=== PATIENT | female | born 1975 | race Caucasian/White ===

== ENCOUNTER 2019-09-19 07:02 | Day surgery (SDC) | payer BC ==
[~2019-09-19 07:02] MED LIST: Lactated Ringers 1,000 ML IV SCH; Lidocaine 1%/Sod Bicarbonate in NS 8.4% 1 ML Syringe IDERM PRN; Sodium Chloride 0.9% 10 ML Syringe FLUSH PRN
[2019-09-19] MEDS ORDERED: Lidocaine 1% 4 ML ONE (07:08)
[2019-09-19] MEDS ORDERED: Midazolam 1 MG/ML 2 ML SDV ONE (07:08)
[2019-09-19] MEDS ORDERED: Propofol 200 MG/20 ML SDV ONE (07:08)
[2019-09-19] MEDS ORDERED: Ondansetron 4 MG/2 ML SDV ONE (07:08)
[2019-09-19] MEDS ORDERED: Rocuronium 50 MG/5 ML Vial ONE (07:08)
[2019-09-19] MEDS ORDERED: Sodium Chloride 0.9% 50 ML SDV ONE (07:08)
[2019-09-19] MEDS ORDERED: Lidocaine 1% with EPINEPHrine 1:100,000 20 ML MDV ONE (07:08)
[2019-09-19] MEDS ORDERED: fentaNYL 250 MCG/5 ML SDV ONE (07:09)
[2019-09-19] MEDS ORDERED: ceFAZolin 1 GM Vial ONE (07:14)
[2019-09-19] MEDS ORDERED: Bupivacaine 0.5% 30 ML SDV ONE (07:19)
--- NOTE | 2019-09-19 07:31 | PCM.PREANE ---
Preanesthetic Assessment - Procedure Proposed Procedure: lavh with bs - Anesthesia/Transfusion/Family Hx Anesthesia History: Prior Anesthesia Without Reaction Family History of Anesthesia Reaction: No Transfusion History: No Prior Transfusion(s) - Review of Systems General: No Symptoms Pulmonary: No Symptoms Cardiovascular: No Symptoms Gastrointestinal: No Symptoms Neurological: No Symptoms Other: Reports: None - Physical Assessment NPO Status Date: 09/18/19 NPO Status Time: 21:00 Vital Signs: 98/70 58 100% 07153.0 Height: 5 ft Weight: 52 kg ASA Class: 1 Mental Status: Alert & Oriented x3 Airway Class: Mallampati = 1 Dentition: Reports: Normal Dentition Thyro-Mental Finger Breadths: 3 Mouth Opening Finger Breadths: 3 ROM/Head Extension: Full Lungs: Clear to Auscultation, Normal Respiratory Effort Cardiovascular: Regular Rate, Regular Rhythm - Lab Values: Laboratory Last Values WBC 7.63 K/mm3 (3.98-10.04) 09/17/19 16:46 RBC 4.81 M/mm3 (3.98-5.22) 09/17/19 16:46 Hgb 14.1 gm/dl (11.2-15.7) 09/17/19 16:46 Hct 41.2 % (34.1-44.9) 09/17/19 16:46 MCV 85.7 fl (79.4-94.8) D 09/17/19 16:46 MCH 29.3 pg (25.6-32.2) 09/17/19 16:46 MCHC 34.2 g/dl (32.2-35.5) 09/17/19 16:46 RDW Std Deviation 41.4 fL (36.4-46.3) 09/17/19 16:46 Plt Count 271 K/mm3 (182-369) 09/17/19 16:46 MPV 9.4 fl (9.4-12.3) 09/17/19 16:46 Neut % (Auto) 67.2 % (34.0-71.1) 09/17/19 16:46 Lymph % (Auto) 22.9 % (19.3-51.7) 09/17/19 16:46 [place] % (Auto) 8.0 % (4.7-12.5) 09/17/19 16:46 Eos % (Auto) 1.2 (0.7-5.8) 09/17/19 16:46 Baso % (Auto) 0.4 % (0.1-1.2) 09/17/19 16:46 Neut # (Auto) 5.13 K/mm3 (1.56-6.13) 09/17/19 16:46 Lymph # (Auto) 1.75 K/mm3 (1.18-3.74) 09/17/19 16:46 [place] # (Auto) 0.61 K/mm3 (0.24-0.36) H 09/17/19 16:46 Eos # (Auto) 0.09 K/mm3 (0.04-0.36) 09/17/19 16:46 Baso # (Auto) 0.03 K/mm3 (0.01-0.08) 09/17/19 16:46 Creatinine 1.1 mg/dL (0.55-1.02) H 09/17/19 16:46 Est Cr Clr Drug Dosing TNP 09/17/19 16:46 Estimated GFR (MDRD) 53 mL/min (>60) 09/17/19 16:46 Urine Color Yellow (Yellow) 09/17/19 16:46 Urine Appearance Clear (Clear) 09/17/19 16:46 Urine pH 5.5 (5.0-8.0) 09/17/19 16:46 Ur Specific [place] 1.020 (1.005-1.030) 09/17/19 16:46 Urine Protein Negative (Negative) 09/17/19 16:46 Urine Glucose (UA) Negative (Negative) 09/17/19 16:46 Urine Ketones 1+ (Negative) H 09/17/19 16:46 Urine Occult Blood Negative (Negative) 09/17/19 16:46 Urine Nitrite Negative (Negative) 09/17/19 16:46 Urine Bilirubin Negative (Negative) 09/17/19 16:46 Urine Urobilinogen 0.2 (0.2-1.0) 09/17/19 16:46 Ur Leukocyte Esterase Negative (Negative) 09/17/19 16:46 Urine RBC 0-5 /hpf (0-5) 09/17/19 16:46 Urine WBC 0-5 /hpf (0-5) 09/17/19 16:46 Ur Squamous Epith Cells 0-5 /hpf (0-5) 09/17/19 16:46 Urine Bacteria Occasional /hpf (FEW) 09/17/19 16:46 Urine Mucus Few /hpf (FEW) 09/17/19 16:46 Urine HCG, Qual Negative (NEGATIVE) 09/17/19 16:46 Blood Type B POSITIVE 09/17/19 16:46 Gel Antibody Screen Negative 09/17/19 16:46 - Allergies Allergies/Adverse Reactions: Allergies Allergy/AdvReac Type Severity Reaction Status Date / Time morphine Allergy Itching Verified 09/18/19 11:40 oxycodone [From OxyContin] Allergy Itching Verified 09/18/19 11:40 - Blood Blood Available: No - Acknowledgements Anesthesia Type Planned: General Anesthesia Pt an Appropriate Candidate for the Planned Anesthesia: Yes Alternatives and Risks of Anesthesia Discussed w Pt/Guardian: Yes Pt/Guardian Understands and Agrees with Anesthesia Plan: Yes PreAnesthesia Questionnaire HEENT History: Reports: Other (See Below) Other HEENT History: bilateral ear pinning, oral surgery Cardiovascular History: Reports: None Respiratory History: Reports: None Gastrointestinal History: Reports: None Genitourinary History: Reports: Other (See Below) Other Genitourinary History: menorrhagia, , breast augmentation 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 (See Below) Other OB/BYN History: right breast mass, dense breast tissue, twins delivered via c section, dysmenorrhea Musculoskeletal History: Reports: None Neurological History: Reports: None Psychiatric History: Reports: None Endocrine/Metabolic History: Reports: Other (See Below) Other Endocrine/Metabolic History: fatigue, female hirsutism Hematologic History: Reports: None Immunologic History: Reports: None Oncologic (Cancer) History: Reports: None Dermatologic History: Reports: Other (See Below) Other Dermatologic History: acne - Past Surgical History Head Surgeries/Procedures: Reports: None HEENT Surgical History: Reports: LASIK, Oral Surgery, Other (See Below) (ears pinned back) Cardiovascular Surgical History: Reports: None Respiratory Surgical History: Reports: None GI Surgical History: Reports: None Female Surgical History: Reports: None, Section, Other (See Below) ( breasts lifted) Male Surgical History: Reports: None Endocrine Surgical History: Reports: None Neurological Surgical History: Reports: None Musculoskeletal Surgical History: Reports: None Dermatological Surgical History: Reports: None - SUBSTANCE USE Smoking Status *Q: Never Smoker Tobacco Use Within Last Twelve Months: No Second Hand Smoke Exposure: No Days Per Week of Alcohol Use: 1 Recreational Drug Use History: No - HOME MEDS Home Medications: Home Meds Doxycycline Monohydrate 100 mg PO DAILY PRN 09/18/19 [History] Spironolactone 50 mg PO DAILY 09/18/19 [History] - CURRENT (IN HOUSE) MEDS Current Meds: Current Medications Lactated Ringer's (Ringers, Lactated) 1,000 mls @ 125 mls/hr IV ASDIRECTED QING Lidocaine/Sodium Bicarbonate (Buffered Lidocaine 1% In Ns 8.4%) 0.25 ml IDERM ONETIME PRN PRN Reason: Prior to IV Start Sodium Chloride (Saline Flush) 10 ml FLUSH ASDIRECTED PRN PRN Reason: Keep Vein Open Discontinued Medications Bupivacaine HCl (Marcaine 0.5%) Confirm Administered Dose 30 ml .ROUTE .STK-MED ONE Stop: 09/19/19 07:20 Cefazolin Sodium (Ancef) Confirm Administered Dose 2 gm .ROUTE .STK-MED ONE Stop: 09/19/19 07:15 Fentanyl (Sublimaze) Confirm Administered Dose 250 mcg .ROUTE .STK-MED ONE Stop: 09/19/19 07:10 Lidocaine HCl (Xylocaine-Mpf 1%) Confirm Administered Dose 4 mls @ as directed .ROUTE .STK-MED ONE Stop: 09/19/19 07:09 Lidocaine/Epinephrine (Xylocaine 1% With Epinephrine 1:100,000) Confirm Administered Dose 20 ml .ROUTE .STK-MED ONE Stop: 09/19/19 07:09 Midazolam HCl (Versed 1 Mg/Ml) Confirm Administered Dose 2 mg .ROUTE .STK-MED ONE Stop: 09/19/19 07:09 Ondansetron HCl (Zofran) Confirm Administered Dose 4 mg .ROUTE .STK-MED ONE Stop: 09/19/19 07:09 Propofol (Diprivan 20 Ml) Confirm Administered Dose 200 mg .ROUTE .STK-MED ONE Stop: 09/19/19 07:09 Rocuronium [place] (Zemuron) Confirm Administered Dose 50 mg .ROUTE .STK-MED ONE Stop: 09/19/19 07:09 Sodium Chloride (Normal Saline) Confirm Administered Dose 50 ml .ROUTE .STK-MED ONE Stop: 09/19/19 07:09
[2019-09-19] MEDS ORDERED: Ketorolac 30 MG/ML SDV ONE (07:58)
[2019-09-19] MEDS ORDERED: Dexamethasone 4 MG/ML 5 ML MDV ONE (08:15)
[2019-09-19] MEDS ORDERED: Neostigmine Methylsulfate 1 MG/ML 5 ML Syringe ONE (08:26)
[2019-09-19] MEDS ORDERED: Lactated Ringers 1,000 ML ONE (08:29)
--- NOTE | 2019-09-19 09:18 | PCM.POSTAN ---
POST ANESTHESIA ASSESSMENT - MENTAL STATUS Mental Status: Alert, Oriented, Somnolent - VITAL SIGNS Vital Signs: Last Vital Signs Temp 98.0 F 09/19/19 07:05 Pulse 58 L 09/19/19 07:05 Resp 16 09/19/19 07:05 BP 98/70 09/19/19 07:05 Pulse Ox 100 09/19/19 07:05 114/59 100% 59 21 97.5 - RESPIRATORY Respiratory Status: Respiratory Rate WNL, Airway Patent, O2 Saturation Stable, Supplemental Oxygen - CARDIOVASCULAR CV Status: Pulse Rate WNL, Blood Pressure Stable - GASTROINTESTINAL GI Status: No Symptoms - PAIN Pain Score: 0 - POST OP HYDRATION Hydration Status: Adequate & Stable
[2019-09-19] MEDS ORDERED: Ondansetron 4 MG/2 ML SDV IVPUSH PRN ×2 (10:02→11:07)
[2019-09-19] MEDS: fentaNYL 100 MCG/2 ML SDV IVPUSH PRN ×2 (10:07→11:16)
--- NOTE | 2019-09-19 11:06 | PCM48HPAN ---
Post Anesthesia Note - EVALUATION WITHIN 48HRS OF ANESTHETIC Vital Signs in Normal Range: Yes Patient Participated in Evaluation: Yes Respiratory Function Stable: Yes Airway Patent: Yes Cardiovascular Function Stable: Yes Hydration Status Stable: Yes Pain Control Satisfactory: Yes Nausea and Vomiting Control Satisfactory: Yes Mental Status Recovered: Yes (doing well. no complaints- drinking coffee) Vital Signs: Last Vital Signs Temp 97.7 F 09/19/19 10:20 Pulse 52 L 09/19/19 11:00 Resp 16 09/19/19 11:00 BP 98/55 L 09/19/19 11:00 Pulse Ox 100 09/19/19 11:00
[2019-09-19] MEDS ORDERED: traMADol 50 MG Tab PO PRN ×2 (11:08→11:29)
[2019-09-19] MEDS ORDERED: Ketorolac 30 MG/ML SDV IVPUSH SCH (11:15)
--- NOTE | 2019-09-19 11:15 | PCM.OPNOTE ---
- General Post-Op/Procedure Note Date of Surgery/Procedure: 09/19/19 Operative Procedure(s): Total vaginal hysterectomy with bilateral salpingectomy Findings: Uterus tubes and ovaries within normal limits grossly. Pre Op Diagnosis: 1. Dysmenorrhea. 2. Menorrhagia Post-Op Diagnosis: Same Anesthesia Technique: General ET Tube Other Anesthesia Type: Lidocaine quarter percent with mLlocal Primary Surgeon: Mitchel Aguirre Secondary Surgeon: Josue Duarte Anesthesia Provider: Malcom Casanova Valve Lapper: Minesh Guan Reason Valve Lapper Was Necessary: Retraction, assistance, patient safety, quality of care Pathology: Uterus, bilateral fallopian tubes Fluid Replacement, Intraop: 1,000 EBL in mLs: 20 Complications: None Condition: Good Free Text/Narrative:: Intake & Output 09/18/19 09/19/19 09/19/19 22:59 06:59 14:59 Intake Total 940 Balance 940 Duration: 33 minutes Procedure: The patient was placed in supine position on the operating table. General endotracheal anesthesia was accomplished. After positioning, and adequate prep and drape, the procedure was then performed. Sterile speculum was placed in the vagina and cervix was visualized. Cervix was injected with lidocaine quarter percent with epinephrine-20 mL used. A full circumference incision was made in the cervical epithelium. The bladder was pushed well back off cervix. Posterior cul-de-sac was then entered sharply without problems. Left uterosacral was crossclamped with a Enseal vessel closure system. The left uterosacral and then the right uterosacral ligament pedicles were developed using the Enseal system. The anterior cul-de-sac was then entered without problems and the uterine vasculature, cardinal ligament and broad ligament then developed using Enseal vessel closure system. The uterus was inverted at this time and upper broad ligament fallopian tube pedicles were crossclamped with Jamey clamps. Specimen was totally removed. Both these pedicles were then secured with a Enseal vessel closure system. Left and right fallopian tube was normal in appearance.. Using Enseal vessel closure system each of the tubes was then removed and sent with the specimen. The patient was found to be hemostatically intact at this time. Vaginal cuff was sutured for hemostatic reasons with a running locked suture of 0 Monocryl from the 2 o'clock position to the 10 o'clock position posteriorly. Vaginal cuff was then closed from right to left side with a running locked suture of 0 Monocryl. Patient was returned to supine position and awakened from general endotracheal anesthesia. She tolerated the procedure and left the operating room in satisfactory condition.
== END 2019-09-19 13:35 | disposition home or self-care (01) ==
LOC: JD.SDS 07:02
PROVIDERS: ATTEND Obstetrics & Gynecology
DX: N80.0 Endometriosis of uterus (principal); N87.9 Dysplasia of cervix uteri, unspecified; N72 Inflammatory disease of cervix uteri; L68.0 Hirsutism; Z88.5 Allergy status to narcotic agent; Z79.899 Other long term (current) drug therapy
CPT/HCPCS: 36415; 58262; 81001; 81025; 82565; 85025; 86850; 86900; 86901; A9270; J0690; J1100; J1885; J2001; J2250; J2405; J2704; J2710; J3010; J3490; J7120; 00944

== ENCOUNTER 2020-09-14 07:51 | Day surgery (SDC) | payer BC ==
[~2020-09-14 07:51] MED LIST changes: +Dexamethasone 4 MG/ML 5 ML MDV ONE; +Ketorolac 15 MG/ML SDV ONE; +Lactated Ringers 1,000 ML ONE; +Lidocaine 1% 4 ML ONE; +Midazolam 1 MG/ML 2 ML SDV ONE; +Ondansetron 4 MG/2 ML SDV ONE; +Propofol 200 MG/20 ML SDV ONE; +Rocuronium 50 MG/5 ML Vial ONE; +ceFAZolin 1 GM Vial ONE; +fentaNYL 250 MCG/5 ML SDV ONE
[2020-09-14] MEDS ORDERED: Bupivacaine 0.5% 30 ML SDV ONE (08:06)
[2020-09-14] MEDS ORDERED: fentaNYL 100 MCG/2 ML SDV IVPUSH PRN ×2 (09:38→10:24)
[2020-09-14] MEDS ORDERED: HYDROmorphone 0.5 MG/0.5 ML Syringe IVPUSH PRN (09:38)
[2020-09-14] MEDS ORDERED: Ondansetron 4 MG/2 ML SDV IVPUSH PRN ×3 (09:38→10:54)
--- NOTE | 2020-09-14 09:42 | PCM.PREANE ---
Preanesthetic Assessment - Anesthesia/Transfusion/Family Hx Anesthesia History: Prior Anesthesia Without Reaction Family History of Anesthesia Reaction: No Transfusion History: No Prior Transfusion(s) Intubation History: Unknown - Review of Systems General: No Symptoms Pulmonary: No Symptoms Cardiovascular: No Symptoms Gastrointestinal: No Symptoms Neurological: No Symptoms Other: Reports: None - Physical Assessment NPO Status Date: 09/13/20 NPO Status Time: 20:00 Vital Signs: Last Vital Signs Temp 36.3 C 09/14/20 07:50 Pulse 50 L 09/14/20 07:50 Resp 16 09/14/20 07:50 BP 106/60 09/14/20 07:50 Pulse Ox 100 09/14/20 07:50 Height: 1.52 m Weight: 52.163 kg ASA Class: 1 Mental Status: Alert & Oriented x3 Airway Class: Mallampati = 2 Dentition: Reports: Normal Dentition, Car[place] Thyro-Mental Finger Breadths: 3 Mouth Opening Finger Breadths: 3 ROM/Head Extension: Full Lungs: Clear to Auscultation, Normal Respiratory Effort Cardiovascular: Regular Rate, Regular Rhythm, No Murmurs - Lab Values: Laboratory Last Values WBC 7.85 K/mm3 (3.98-10.04) 09/10/20 12:58 RBC 4.70 M/mm3 (3.98-5.22) 09/10/20 12:58 Hgb 14.3 gm/dl (11.2-15.7) 09/10/20 12:58 Hct 42.2 % (34.1-44.9) 09/10/20 12:58 MCV 89.8 fl (79.4-94.8) 09/10/20 12:58 MCH 30.4 pg (25.6-32.2) 09/10/20 12:58 MCHC 33.9 g/dl (32.2-35.5) 09/10/20 12:58 RDW Std Deviation 40.1 fL (36.4-46.3) 09/10/20 12:58 Plt Count 251 K/mm3 (182-369) 09/10/20 12:58 MPV 9.2 fl (9.4-12.3) L 09/10/20 12:58 Neut % (Auto) 76.8 % (34.0-71.1) H 09/10/20 12:58 Lymph % (Auto) 14.6 % (19.3-51.7) L 09/10/20 12:58 [place] % (Auto) 6.2 % (4.7-12.5) 09/10/20 12:58 Eos % (Auto) 1.8 (0.7-5.8) 09/10/20 12:58 Baso % (Auto) 0.5 % (0.1-1.2) 09/10/20 12:58 Neut # (Auto) 6.02 K/mm3 (1.56-6.13) 09/10/20 12:58 Lymph # (Auto) 1.15 K/mm3 (1.18-3.74) L 09/10/20 12:58 [place] # (Auto) 0.49 K/mm3 (0.24-0.36) H 09/10/20 12:58 Eos # (Auto) 0.14 K/mm3 (0.04-0.36) 09/10/20 12:58 Baso # (Auto) 0.04 K/mm3 (0.01-0.08) 09/10/20 12:58 Sodium 139 mEq/L (136-145) 09/10/20 12:58 Potassium 3.7 mEq/L (3.5-5.1) 09/10/20 12:58 Chloride 101 mEq/L (98-107) 09/10/20 12:58 Carbon Dioxide 28 mEq/L (21-32) 09/10/20 12:58 Anion Gap 13.7 (5-15) 09/10/20 12:58 BUN 14 mg/dL (7-18) 09/10/20 12:58 Creatinine 1.0 mg/dL (0.55-1.02) 09/10/20 12:58 Est Cr Clr Drug Dosing TNP 09/10/20 12:58 Estimated GFR (MDRD) 59 mL/min (>60) 09/10/20 12:58 BUN/Creatinine Ratio 14.0 (14-18) 09/10/20 12:58 Glucose 91 mg/dL (74-106) 09/10/20 12:58 Calcium 8.9 mg/dL (8.5-10.1) 09/10/20 12:58 Total Bilirubin 0.4 mg/dL (0.2-1.0) 09/10/20 12:58 AST 18 U/L (15-37) 09/10/20 12:58 ALT 25 U/L (14-59) 09/10/20 12:58 Alkaline Phosphatase 44 U/L (46-116) L 09/10/20 12:58 Total Protein 7.2 g/dl (6.4-8.2) 09/10/20 12:58 Albumin 3.9 g/dl (3.4-5.0) 09/10/20 12:58 Globulin 3.3 gm/dL 09/10/20 12:58 Albumin/Globulin Ratio 1.2 (1-2) 09/10/20 12:58 Urine Color Yellow (Yellow) 09/10/20 12:58 Urine Appearance Clear (Clear) 09/10/20 12:58 Urine pH 7.0 (5.0-8.0) 09/10/20 12:58 Ur Specific [place] 1.025 (1.005-1.030) 09/10/20 12:58 Urine Protein Negative (Negative) 09/10/20 12:58 Urine Glucose (UA) Negative (Negative) 09/10/20 12:58 Urine Ketones Negative (Negative) 09/10/20 12:58 Urine Occult Blood Negative (Negative) 09/10/20 12:58 Urine Nitrite Negative (Negative) 09/10/20 12:58 Urine Bilirubin Negative (Negative) 09/10/20 12:58 Urine Urobilinogen 0.2 (0.2-1.0) 09/10/20 12:58 Ur Leukocyte Esterase Negative (Negative) 09/10/20 12:58 - Allergies Allergies/Adverse Reactions: Allergies Allergy/AdvReac Type Severity Reaction Status Date / Time morphine Allergy Itching Verified 09/14/20 08:48 oxycodone [From OxyContin] Allergy Itching Verified 09/14/20 08:48 - Anesthesia Plan Pre-Op Medication Ordered: None - Acknowledgements Pt an Appropriate Candidate for the Planned Anesthesia: Yes Alternatives and Risks of Anesthesia Discussed w Pt/Guardian: Yes Pt/Guardian Understands and Agrees with Anesthesia Plan: Yes PreAnesthesia Questionnaire HEENT History: Reports: Other (See Below) Other HEENT History: bilateral ear pinning, oral surgery Cardiovascular History: Reports: None Respiratory History: Reports: None Gastrointestinal History: Reports: None Genitourinary History: Reports: Other (See Below) Other Genitourinary History: menorrhagia, , breast augmentation 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: , Other (See Below) Other OB/BYN History: right breast mass, dense breast tissue, twins delivered via c section, dysmenorrhea Musculoskeletal History: Reports: None Neurological History: Reports: None Psychiatric History: Reports: None Endocrine/Metabolic History: Reports: Other (See Below) Other Endocrine/Metabolic History: fatigue, female hirsutism Hematologic History: Reports: None Immunologic History: Reports: None Oncologic (Cancer) History: Reports: None Dermatologic History: Reports: Other (See Below) Other Dermatologic History: acne - Past Surgical History Head Surgeries/Procedures: Reports: None HEENT Surgical History: Reports: LASIK, Oral Surgery, Other (See Below) Cardiovascular Surgical History: Reports: None Respiratory Surgical History: Reports: None GI Surgical History: Reports: None Female Surgical History: Reports: Section, Hysterectomy Male Surgical History: Reports: None Endocrine Surgical History: Reports: None Neurological Surgical History: Reports: None Musculoskeletal Surgical History: Reports: None Oncologic Surgical History: Reports: None Dermatological Surgical History: Reports: None - SUBSTANCE USE Tobacco Use Status *Q: Never Tobacco User Recreational Drug Use History: No - HOME MEDS Home Medications: Home Meds Spironolactone 50 mg PO DAILY 09/18/19 [History] - CURRENT (IN HOUSE) MEDS Current Meds: Current Medications Lactated Ringer's (Ringers, Lactated) 1,000 mls @ 125 mls/hr IV ASDIRECTED QING Stop: 09/14/20 23:00 Last Admin: 09/14/20 08:00 Dose: 125 mls/hr Documented by: Lidocaine/Sodium Bicarbonate (Buffered Lidocaine 1% In Ns 8.4%) 0.25 ml IDERM ONETIME PRN PRN Reason: Prior to IV Start Stop: 09/14/20 18:00 Last Admin: 09/14/20 08:00 Dose: 0.25 ml Documented by: Sodium Chloride (Saline Flush) 10 ml FLUSH ASDIRECTED PRN PRN Reason: Keep Vein Open Stop: 09/14/20 18:00 Discontinued Medications Bupivacaine HCl (Marcaine 0.5%) Confirm Administered Dose 30 ml .ROUTE .STK-MED ONE Stop: 09/14/20 08:07 Cefazolin Sodium (Ancef) Confirm Administered Dose 2 gm .ROUTE .STK-MED ONE Stop: 09/14/20 07:10 Dexamethasone (Dexamethasone) Confirm Administered Dose 20 mg .ROUTE .STK-MED ONE Stop: 09/14/20 07:10 Fentanyl (Sublimaze) Confirm Administered Dose 250 mcg .ROUTE .STK-MED ONE Stop: 09/14/20 07:10 Lidocaine HCl (Xylocaine-Mpf 1%) Confirm Administered Dose 4 mls @ as directed .ROUTE .STK-MED ONE Stop: 09/14/20 07:10 Lactated Ringer's (Ringers, Lactated) Confirm Administered Dose 1,000 mls @ as directed .ROUTE .ST-MED ONE Stop: 09/14/20 07:10 Ketorolac Tromethamine (Toradol) Confirm Administered Dose 15 mg .ROUTE .STK-MED ONE Stop: 09/14/20 07:10 Midazolam HCl (Versed 1 Mg/Ml) Confirm Administered Dose 2 mg .ROUTE .STK-MED ONE Stop: 09/14/20 07:10 Ondansetron HCl (Zofran) Confirm Administered Dose 4 mg .ROUTE .STK-MED ONE Stop: 09/14/20 07:10 Propofol (Diprivan 20 Ml) Confirm Administered Dose 400 mg .ROUTE .STK-MED ONE Stop: 09/14/20 07:10 Rocuronium [place] (Zemuron) Confirm Administered Dose 50 mg .ROUTE .STK-MED ONE Stop: 09/14/20 07:10
[2020-09-14] MEDS ORDERED: ceFAZolin 1 GM Vial ONE ×2 (09:49)
[2020-09-14] MEDS ORDERED: Ketorolac 15 MG/ML SDV ONE (10:22)
[2020-09-14] MEDS ORDERED: diphenhydrAMINE 50 MG/ML SDV IVPUSH PRN (10:24)
[2020-09-14] MEDS ORDERED: ePHEDrine 50 MG/ML SDV IVPUSH PRN (10:24)
[2020-09-14] MEDS ORDERED: Lactated Ringers 1,000 ML ONE (10:32)
[2020-09-14] MEDS ORDERED: traMADol 50 MG Tab PO PRN (10:56)
--- NOTE | 2020-09-14 11:04 | PCM.OPNOTE ---
- General Post-Op/Procedure Note Date of Surgery/Procedure: 09/14/20 Operative Procedure(s): Laparoscopic bilateral oophorectomy Findings: Ovaries appeared to be within normal limits. Right ovary had a benign-appearing cyst present within it. Some scarring noted between the descending and sigmoid colon in the left pelvic sidewall. Uterus, cervix and fallopian tubes were surgically absent. Next was flaccid and noninflamed. Liver edge, gallbladder were within normal limits. Pre Op Diagnosis: 1. 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 Post-Op Diagnosis: Same Anesthesia Technique: General ET Tube Other Anesthesia Type: Marcaine 0.5%localapproximately 15 cc total Primary Surgeon: Mitchel Aguirre Secondary Surgeon: Josue Duarte Anesthesia Provider: Smiley Pelletier Churn Driller Helper: Miracle German Reason Churn Driller Helper Was Necessary: Retraction, assistance, patient safety, quality of care Pathology: Bilateral ovaries in 1 specimen container Fluid Replacement, Intraop: 1,300 Output, Urine Amount: 325 EBL in mLs: 5 Drain/Tube Comments:: Indwelling bladder catheter during surgery only Complications: None Condition: Good Free Text/Narrative:: Surgery duration: 35 minutes Procedure: The patient was taken to the operating room and placed in supine position on the operative table. She had sequential compression stockings in place for DVT prophylaxis and had been given 2 g of Ancef IV for infection prophylaxis. She was administered general endotracheal anesthesia. After administration of anesthesia the patient was placed in dorsal lithotomy position and prepped and draped in usual fashion. An indwelling bladder catheter was placed as was a uterine manipulator. Infraumbilical incision site, suprapubic site and right lower quadrant port sites were developed after filtration with approximately 3-4 mL of Marcaine 0.5%. . Verres needle was placed in the infraumbilical incision site and pneumoperitoneum was established was in 3 L of CO2. The laparoscopic sleeve was then placed as was the scope. Under direct visualization the suprapubic site was developed with a 12 mm per. Pelvis was evaluated findings as above. Right lower quadrant port site was then developed with 5 mm sleeve and trocar. Pelvis dilated. Uterus, cervix and fallopian tubes were found surgically absent. Some scarring noted on the left side between the descending and sigmoid colon and left pelvic sidewall. Ovary was small and outside. It was normal in appearance. Right ovary was easily easily visualized. It was mildly enlarged with what appeared to be a simple cyst present. The appendix was found be flaccid and noninflamed. Liver edge, gallbladder were found to be normal in appearance. The left ovary was dissected free from mild adhesions, elevated and using the Enseal vessel closure system and to develop pelvic ligament was crossclamped and developed in routine fashion. Ovary was freed up and placed into the cul-de-sac area. The right ovary was managed in the very same way. An Endo Catch bag was placed and both ovaries were placed in the Endo Catch bag. They were removed through the suprapubic port site without problems. Time hemostasis was confirmed. A Pancho Bolivar port site closure system was used to place a suture into the suprapubic site effectively closing it adequately to decrease likelihood of herniation of bowel or other structures. Pneumoperitoneum was reversed after right lower quadrant port site was removed to the intrabuccal port site was removed also after the peritoneum was reversed. All skin incisions were closed with interrupted 3-0 Monocryl sutures in a subcuticular fashion. There further approximated with Dermabond skin glue. Martinez catheter was removed at the end of the procedure. Patient was awakened from general endotracheal anesthesia. She is discharged on the operating good condition.
--- NOTE | 2020-09-14 11:07 | PCM.POSTAN ---
POST ANESTHESIA ASSESSMENT - MENTAL STATUS Mental Status: Alert - VITAL SIGNS Vital Signs: Last Vital Signs Temp 36.6 C 09/14/20 11:01 Pulse 71 09/14/20 1101 Resp 15 09/14/20 11:01 BP 100/56 L 09/14/20 11:01 Pulse Ox 100 09/14/20 11:01 - RESPIRATORY Respiratory Status: Respiratory Rate WNL, Airway Patent, O2 Saturation Stable, Supplemental Oxygen - CARDIOVASCULAR CV Status: Pulse Rate WNL, Blood Pressure Stable - GASTROINTESTINAL GI Status: No Symptoms - POST OP HYDRATION Hydration Status: Adequate & Stable
--- NOTE | 2020-09-14 15:44 | PCM48HPAN ---
Post Anesthesia Note - EVALUATION WITHIN 48HRS OF ANESTHETIC Vital Signs in Normal Range: Yes Patient Participated in Evaluation: Yes Respiratory Function Stable: Yes Airway Patent: Yes Cardiovascular Function Stable: Yes Hydration Status Stable: Yes Pain Control Satisfactory: Yes Nausea and Vomiting Control Satisfactory: Yes Mental Status Recovered: Yes Vital Signs: Last Vital Signs Temp 36.9 C 09/14/20 12:05 Pulse 62 09/14/20 12:35 Resp 16 09/14/20 12:35 BP 104/60 09/14/20 12:35 Pulse Ox 99 09/14/20 12:35
[2020-09-14] MEDS ORDERED: Ibuprofen 600 MG Tab PO PRN (16:30)
== END 2020-09-14 12:55 | disposition home or self-care (01) ==
LOC: JD.SDS 07:51
PROVIDERS: ATTEND Obstetrics & Gynecology
DX: N83.12 Corpus luteum cyst of left ovary (principal); N83.11 Corpus luteum cyst of right ovary; N83.02 Follicular cyst of left ovary; N83.01 Follicular cyst of right ovary; Z88.5 Allergy status to narcotic agent; Z88.8 Allergy status to other drugs, medicaments and biological substances; Z90.79 Acquired absence of other genital organ(s)
CPT/HCPCS: 36415; 58661; 80053; 81003; 85025; J0690; J1100; J1885; J2001; J2250; J2405; J2704; J2710; J3010; J3490; J7120; 00944